=== PATIENT | female | born 1945 | race Caucasian/White ===

== ENCOUNTER 2017-05-22 06:35 | Day surgery (SDC) ==
[2017-05-22] MEDS ORDERED: LIDOCAINE 1% 20 ML MDV ID ONE (07:25)
[2017-05-22 07:30] VITALS: TEMP 98.2
[2017-05-22] MEDS ORDERED: DIPRIVAN 20 ML VIAL IVP ONE (08:25)
[2017-05-22] MEDS ORDERED: VERSED ONE (08:25)
[2017-05-22 15:28] VITALS: BP 114/62
--- NOTE | 2017-05-23 10:22 | OP ---
PROCEDURE: EGD (ESOPHAGOGASTRODUODENOSCOPY. ENDOSCOPIST: Bladimir ESCOBAR M.D. INDICATION: REFLUX. INSTRUMENT: GIFH-190. MEDICATION: PER ANESTHESIA. PROCEDURE: The patient was positioned for endoscopy. The oropharynx was sprayed with Cetacaine spray and the endoscope was advanced through the bite block into the esophagus and from there advanced to the duodenum. The duodenum was normal. The pylorus was patent. The antrum was normal. A moderate sized hiatal hernia seen on retroflex exam. The Z-line was at 30 cm. Grade C esophagitis noted in the distal third of the esophagus. She tolerated the procedure without immediate complication. PLAN: 1. Continue Proton Pump Inhibitor increased to b.i.d. for a few months and then a repeat endoscopy in three months. CC: DR. DYLAN TUTTLE
--- NOTE | 2017-05-23 10:25 | OP ---
PROCEDURE: COLONOSCOPY TO THE CECUM WITH SNARE POLYPECTOMY. ENDOSCOPIST: Bladimir ESCOBAR M.D. INDICATION: ANEMIA. INSTRUMENT: PCFH-190. MEDICATION: PER ANESTHESIA. PROCEDURE: The patient was positioned for colonoscopy. The digital rectal exam was negative. The colonoscope was inserted through the anus and advanced to the cecum. The cecum was identified using the ileocecal valve and the appendiceal orifice as landmarks. The scope was slowly withdrawn through an adequately prepped colon. [place] Bowel Prep Score = 9. In the cecal pit, an 8 mm sessile polyp removed using snare cautery. 1 cm polyp in the ascending colon removed using snare cautery. A second small polyp removed in the ascending colon submitted in the same container. Diverticulosis in the left colon. Retroflex exam was otherwise normal. She tolerated the procedure without immediate complication. Withdrawal time was 11 min and 32 seconds. PLAN: 1. Repeat colonoscopy in 3 years. CC: DR. DYLAN TUTTLE
== END 2017-05-22 09:30 | disposition home or self-care (01) ==
LOC: SURG 06:35
PROVIDERS: ATTEND Internal Medicine Gastroenterology
DX: D64.9 Anemia, unspecified (principal); K21.0 Gastro-esophageal reflux disease with esophagitis; D12.0 Benign neoplasm of cecum; K63.5 Polyp of colon; K44.9 Diaphragmatic hernia without obstruction or gangrene; K57.30 Diverticulosis of large intestine without perforation or abscess without bleeding

== ENCOUNTER 2017-10-03 10:29 | Outpatient (CLI) | END 2017-10-03 10:30 | disposition home or self-care (01) | LOC: LAB 10:29 | PROVIDERS: ATTEND Internal Medicine Nephrology | DX: N18.3 Chronic kidney disease, stage 3 (moderate) (principal) | CPT/HCPCS: 36415; 80048; 82043; 82728; 83540; 83550; 85027 ==

== ENCOUNTER 2017-10-25 11:20 | Outpatient (CLI) | payer OTHER | END 2017-10-25 11:21 | disposition home or self-care (01) | LOC: RAD 11:20 | PROVIDERS: ATTEND Family Medicine | DX: Z12.31 Encounter for screening mammogram for malignant neoplasm of breast (principal) | CPT/HCPCS: 77067 ==

== ENCOUNTER 2018-04-06 15:16 | Outpatient (CLI) | payer OTHER | END 2018-04-06 15:17 | disposition home or self-care (01) | LOC: LAB 15:16 | PROVIDERS: ATTEND Internal Medicine Nephrology | DX: N18.3 Chronic kidney disease, stage 3 (moderate) (principal) | CPT/HCPCS: 36415; 80048; 82043; 85027 ==

== ENCOUNTER 2018-07-04 13:56 | Outpatient (CLI) ==
--- NOTE | 2018-07-04 14:59 | DI ---
EXAM: Three views of the left knee. History: Left posterior knee pain. Findings: No acute fracture or dislocation. Chondrocalcinosis is seen. Moderate narrowing of the m edial compartment. Mild narrowing of the patellofemoral compartment and lateral compartment. There is osteophyte formation. Subchondral cyst within the proximal tibia. Impression: 1. No acute osseous abnormality. 2. Chondrocalcinosis. 3. 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
== END 2018-07-04 13:57 | disposition home or self-care (01) ==
LOC: RAD 13:56
PROVIDERS: ATTEND Family Medicine
DX: M25.562 Pain in left knee (principal)

== ENCOUNTER 2018-07-05 07:24 | Outpatient (CLI) | payer OTHER ==
--- NOTE | 2018-07-05 08:12 | US ---
EXAM: Left lower extremity venous Doppler History: Left lower extremity swelling. Technique: Multiple sonographic images through the left lower extremity were obtained. Color duplex Doppler was used to interrogate vascular flow. Findings: The left common femoral, greater saphenous, profunda, superficial femoral, popliteal, chloe carolyne, posterior tibial and anterior tibial veins demonstrate spontaneous flow with normal compression and normal augmentation. 3.2 cm x 1.0 cm x 1.9 cm left Menchaca's cyst. Impression: 1. No sonographic evidence for deep venous thrombosis. 2. Left Menchaca's cyst
== END 2018-07-05 07:25 | disposition home or self-care (01) ==
LOC: RAD 07:24
PROVIDERS: ATTEND Family Medicine
DX: M25.562 Pain in left knee (principal); M79.89 Other specified soft tissue disorders

== ENCOUNTER 2018-10-30 11:08 | Outpatient (CLI) | payer OTHER ==
--- NOTE | 2018-10-31 11:06 | MAMMO ---
EXAM: Bilateral digital screening mammogram (2-D and 3-D) History: Screening Comparison: Bilateral mammogram 10/25/2017 Findings: MLO and CC views of bilateral breasts demonstrate scattered fibroglandular breast parenchy ma. CAD was reviewed by the radiologist. Tomosynthesis was performed. There are no dominant masses , no suspicious microcalcifications and no architectural distortions. Stable benign bilateral vascul ar calcifications. Impression: Benign stable mammogram. Recommend followup routine screening mammography in 1 year. BI-RADS 2, benign
== END 2018-10-30 11:09 | disposition home or self-care (01) ==
LOC: RAD 11:08
PROVIDERS: ATTEND Family Medicine
DX: Z12.31 Encounter for screening mammogram for malignant neoplasm of breast (principal); M48.02 Spinal stenosis, cervical region; M54.2 Cervicalgia; R20.0 Anesthesia of skin; R20.2 Paresthesia of skin

== ENCOUNTER 2018-11-01 10:00 | Outpatient (RCR) ==
--- NOTE | 2018-10-16 15:50 | RS.OPPTEV2 ---
Date of Note: 10/16/18 Visit #: 1 Number of visits approved by Insurance: n/a Date of Evaluation: 10/16/18 Payer Source: MEDICARE Surgery Performed?: No Treatment Diagnosis: Cervical pain, spinal stenosis in cervical region, radiculopathy BUE History of Condition/Mechanism of Injury:: Pain began approx 5-6 months ago and n/t has progressively gotten worse. pt with no definite injury. Prior Level of Function.....Patient was independent with: ADL's, Self Care, Caregiving, Ambulation/Mobility, Community Integration/Access Level of Function: pt is retired, pt with an active lifestyle. Functional Limitations: Reaching, Pushing, Pulling, Lifting, Carrying Current Subjective/complaints:: pt states that her pain in cervical spine is not a severe as it was, however the n/t and pain in BUE has worsened. Treatment Side (optional): Bilateral *Precautions: n/a Medical History Medical History: Hypertension, CVA/TIA (approx 8 yrs ago), Diabetes Surgical History: Knee Replacement (Right), Hysterectomy Smoking Status: Never smoker Diagnostic Testing/Imaging:: MRI 09/13/18: multilevel grade 1 anterolisthesis with multilevel degenerative changes. Spinal canal stenosis mod at C3-4. C 6- 7 with disc osteophyte complex and superimposed rightparacentral/subarticular disc protrusion. Nerve conduction test: UE may suggest some distal median and ulnar sensory entrapment R median > left and median motor entrapment at the wrist on the right. Hx Home Medications: aspirin, atorvastatin, cinnamon, cranberry-cholecalciferol , felodipine, ferosul, fish oil, losartan/hctz, metformin ER, niacin, pantoprazole, vit D Patient's Goals: decrease pain in cervical spine, and decrease n/t B UE's Pain Assessment - Pain Description Pain Location: cervical spine Pain Description: Radiating, Aching Current Pain Intensity: 4 Worst Pain Intensity: 7 Other Comments regarding Pain:: pt with some pain in upper arms even at rest Functional Outcome Measure Neck Disability Index: 7 - G Codes & Severity Modifier G Codes & Modifier: n/a Source of G Code score: n/a Observation - Observation Inspection: pt with pain with shld ROM. pt with + speeds test on RUE, + empty can on left. Posture: Forward Head, Rounded Shoulders, Increased Thoracic Kyphosis, Decreased Cervical Lordosis Handedness: Right Gait - Gait Pattern General Gait Pattern Observation: No Deviations/Normal General Range of Motion: BLE WFL's. BUE WFL's Muscle Strength: BLE 5/5. BUE shld flex 4-/5, elbow flex/ext 4+/5, decreased senior accounting analyst. Ground Host/Hostess strength : R UE 36#, LUE 35# - ROM Cervical Spine Range of Motion Limitations: Soft Tissue Tightness, Muscle Weakness, Pain Comments: pain with cervical L rotation, and L lat side bending. - Strength Cervical Extension: 4 Good Cervical Flexion: 4- Good- Cervical Lateral Flexion: 4- Good- Cervical Rotation: 4- Good- Comments: pt with pain with brachial plexus stretch. - Special Tests Foraminal Distraction: Negative Foraminal Compression: Negative Left, Negative Right Palpation Palpation Findings: Tenderness Comments:: pt with tenderness noted in cervical paraspinals, tenderness to palpation R biceps tendon. Tenderness to palpation on L AC joint Sensation - Sensation Right Upper Extremity: Impaired Left Upper Extremity: Impaired Right Lower Extremity: Intact/Normal Left Lower Extremity: Intact/Normal Comments: pt with n/t BUE elbows/to hands, pt with burning to B fingertips Balance - Sitting Balance Static Sitting Balance: Normal Dynamic Sitting Balance: Normal - Standing Balance Static Standing Balance: Normal Dynamic Standing Balance: Normal Interventions - Exercise/Activities/Manual Therapy Exercises/Activities: pt performed cervical retraction, corner stretch, wrist flexor stretch, scapular retraction Manual Therapy: n/a HOME EXERCISE PROGRAM: pt given written HEP including: cervical retraction, scapular retraction, corner stretch, wrist flexor stretch. - Charges Timed Code Treatment Minutes: 51 Total Treatment Time: 58 Procedures billed for this date of service:: eval low, ex EVALUATION COMPLEXITY LEVEL EVALUATION COMPLEXITY LEVEL: HISTORY: Low, EXAM OF BODY SYSTEMS: Low, CLINICAL PRESENTATION: Low, CLINICAL DECISION MAKING: Low Assessment Assessment: pt presents with cervical pain, with radicular n/t BUE. pt with muscle tightness in cervical paraspinal muscles. pt also with decreased strength BUE. pt also with symptoms consistent with compression to median nerve. Feel pt would benefit from skilled PT for therex for stretching, strengthening as well as possibly traction and modalities to decrease pain . Patient Education: Home Exercise Program, Education of Plan of Care Rehab Potential: Good Short Term Goals Goal #1: pt independent with intial HEP Goal to be met by: 11/02/18 Goal #2: pt with decreased cervical pain < 4/10 Goal to be met by: 11/02/18 Goal #3: pt demonstrate improved postural awareness Goal to be met by: 11/02/18 Goal #4: Improve BUE strength 4 to 4+/5 Goal to be met by: 11/02/18 Hanger Goals Goal #1: pt report n/t B UE no longer constant. Goal to be met by: 11/23/18 Goal #2: pt able to perform normal daily activities w less pain Goal to be met by: 11/23/18 Goal #3: pt report pain in cervical spine is no longer constant. Goal to be met by: 11/23/18 Plan - Treatment to be Provided Procedures: Therapeutic Exercises, Therapeutic Activity, Manual Therapy, Patient Education Modalities: Electrical Stimulation, Ultrasound/Phonophoresis, Class IV Laser, Cryotherapy, Hot Packs, Mechanical Traction - Treatment Plan Frequency: 2-3x a week Duration: 6 weeks Dates of Hanger Goals: 11/23/18 Expiration date of current Insurance Approval:: n/a - Treatment Code (1) Cervical pain Code(s): M54.2 - CERVICALGIA (2) Radiculopathy affecting upper extremity Code(s): M54.10 - RADICULOPATHY, SITE UNSPECIFIED (3) Muscle weakness Code(s): M62.81 - MUSCLE WEAKNESS (GENERALIZED) (4) Spinal stenosis in cervical region Code(s): M48.02 - SPINAL STENOSIS, CERVICAL REGION
--- NOTE | 2018-10-18 15:49 | RS.OPPTDN ---
Subjective Date of Note: 10/18/18 Visit #: 2 Number of visits approved by Insurance: Reassess at 10 Date of Evaluation: 10/16/18 Payer Source: MEDICARE Treatment Diagnosis: Cervical pain, spinal stenosis in cervical region, radiculopathy BUE Current Subjective/complaints:: Patient says she has had to be dealing with insurance changes on her prescriptions and is upset about being nearly out of her medications. She says she is trying to work on "straightening up" and eager to begin therapy to reduce her pain in her neck. Reports tingling/ numbness runs from both shoulders to hands all fingers sitting at rest or with activity. *Precautions: n/a - Treatment Modality: Ultrasound Parameters/Method Applied: continuous @ 1.5 w/cm2 x 12 mins bilateral UT Patient Position: Sitting - Heat/Cryotherapy Treatment: Hot Pack (15 mins cervical in sitting) - Traction Treatment Method: Mechanical, Intermittent, Cervical Patient Position: Supine Amount of Force Applied: 13 Hold Time: 25 Rest Time: 5 Duration of treatment: 12 Interventions - Exercise/Activities/Manual Therapy Exercises/Activities: Received education regarding posture and techniques as well as on treatment performed today and their benefits. She was encouraged to continue with home stretches and working on postural techniques. Total minutes of Exercise: 6 Manual Therapy: n/a HOME EXERCISE PROGRAM: pt given written HEP including: cervical retraction, scapular retraction, corner stretch, wrist flexor stretch. - Charges Timed Code Treatment Minutes: 18 Total Treatment Time: 41 Procedures billed for this date of service:: hp, mechanical traction, u/s Assessment: Patient presents with moderate bilateral UT pain with constant n/t to bilateral UE to all fingers. She has mild mm guarding to the same area with FHP. She is now aware of poor posture and is trying to improve it with home stretches. She dereck all treatment today well and with verbally admitting relief. Traction began low in poundage and was also dereck without c/o. She expresses looking forward to progressing with traction to alleviate radiating symptoms. Patient Education: Education of diagnosis, Body/Joint mechanics, Home Exercise Program, Education of Plan of Care Patient demonstrates compliance with HEP?: Yes Short Term Goals Goal #1: pt independent with intial HEP Goal to be met by: 11/02/18 Progress towards Goal:: Progressing Goal #2: pt with decreased cervical pain < 4/10 Goal to be met by: 11/02/18 Goal #3: pt demonstrate improved postural awareness Goal to be met by: 11/02/18 Goal #4: Improve BUE strength 4 to 4+/5 Goal to be met by: 11/02/18 Snf Goals Goal #1: pt report n/t B UE no longer constant. Goal to be met by: 11/23/18 Goal #2: pt able to perform normal daily activities w less pain Goal to be met by: 11/23/18 Goal #3: pt report pain in cervical spine is no longer constant. Goal to be met by: 11/23/18 Plan Dates of Music Library Assistant Goals: 11/23/18 Expiration date of current Insurance Approval:: 11/23/18 PLAN: continue for modalities, traction, and postural strengthening.
--- NOTE | 2018-10-22 11:28 | RS.OPPTDN ---
Subjective Date of Note: 10/22/18 Visit #: 3 Number of visits approved by Insurance: Reassess at 10th Date of Evaluation: 10/16/18 Payer Source: MEDICARE Treatment Diagnosis: Cervical pain, spinal stenosis in cervical region, radiculopathy BUE Current Subjective/complaints:: Patient says treatment at last visit seemed to help. She feels traction relieved her pain and wants to continue. *Precautions: n/a - Treatment Modality: Ultrasound Parameters/Method Applied: continuous@ 1.5 w/cm2 x 12 mins to bilateral UT Patient Position: Sitting - Heat/Cryotherapy Treatment: Hot Pack (cervical x 20 mins in sitting with arm supported on pillow) - Traction Treatment Method: Mechanical, Intermittent, Cervical Patient Position: Supine Amount of Force Applied: 14-15 Hold Time: 20 Rest Time: 5 Duration of treatment: 16 Interventions - Exercise/Activities/Manual Therapy Exercises/Activities: Received education regarding posture and techniques as well as on treatment performed today and their benefits. She was encouraged to continue with home stretches and working on postural techniques. Manual Therapy: n/a HOME EXERCISE PROGRAM: pt given written HEP including: cervical retraction, scapular retraction, corner stretch, wrist flexor stretch. - Charges Timed Code Treatment Minutes: 15 Total Treatment Time: 50 Procedures billed for this date of service:: hp, u/s, mechanical traction Assessment: Patient experienced reduced neck pain following her previous session and beginning traction. She also felt mild relief today and eager to progress traction further. She is consistent with HEP. Patient Education: Education of diagnosis, Home Exercise Program Patient demonstrates compliance with HEP?: Yes Short Term Goals Goal #1: pt independent with intial HEP Goal to be met by: 11/02/18 Progress towards Goal:: Progressing Goal #2: pt with decreased cervical pain < 4/10 Goal to be met by: 11/02/18 Goal #3: pt demonstrate improved postural awareness Goal to be met by: 11/02/18 Goal #4: Improve BUE strength 4 to 4+/5 Goal to be met by: 11/02/18 Senior Ruby Developer Goals Goal #1: pt report n/t B UE no longer constant. Goal to be met by: 11/23/18 Goal #2: pt able to perform normal daily activities w less pain Goal to be met by: 11/23/18 Goal #3: pt report pain in cervical spine is no longer constant. Goal to be met by: 11/23/18 Plan Dates of Senior Ruby Developer Goals: 11/23/18 Expiration date of current Insurance Approval:: 11/23/18 PLAN: Patient to continue BIW for modalities, progress traction and postural strengthening.
--- NOTE | 2018-10-24 11:40 | RS.OPPTDN ---
Subjective Date of Note: 10/24/18 Visit #: 4 Number of visits approved by Insurance: Reassess at 10th Date of Evaluation: 10/16/18 Payer Source: MEDICARE Treatment Diagnosis: Cervical pain, spinal stenosis in cervical region, radiculopathy BUE Current Subjective/complaints:: Patient says she still is having n/t to bilateral UEs, but neck pain is lessening and thinks PT is helping decrease the frequency of radiating symptoms. She says she tries to work on HEP so that her posture may improve. *Precautions: n/a - Treatment Modality: Ultrasound Parameters/Method Applied: continuous @ 1.5 w/cm2 x 12 mins bilateral UT Patient Position: Sitting - Heat/Cryotherapy Treatment: Hot Pack (cervical x 15 mins prior to u/s in sitting with arm support ) - Traction Treatment Method: Mechanical, Intermittent, Cervical Patient Position: Supine Amount of Force Applied: 16-17 Hold Time: 25 Rest Time: 5 Duration of treatment: 20 Traction Treatment Comment: 2 steps up Interventions - Exercise/Activities/Manual Therapy Exercises/Activities: Patient received passive cspine stretches including rotation and SB bilaterally, AA shoulder shrugs and scap adduction. Cervical retraction x 5. She performs postural techniques against the wall, 1# wand for bilateral shoulder flexion to ~100 degrees flexion, then red tband bilateral shoulder ER x 10. Patient given red tband for home. Total minutes of Exercise: 12 Manual Therapy: n/a HOME EXERCISE PROGRAM: pt given written HEP including: cervical retraction, scapular retraction, corner stretch, wrist flexor stretch. - Charges Timed Code Treatment Minutes: 24 Total Treatment Time: 59 Procedures billed for this date of service:: hp, mechanical traction, ex, u/s Assessment: Patient dereck progression of traction and demo better posture with cueing and isometrics. She is more aware of correction and is consistent with HEP. She has had slight reduction in neck pain, but maintains radiating symptoms. This should improve with further modalties, therex, and traction. Patient Education: Education of diagnosis, Body/Joint mechanics, Home Exercise Program, Education of Plan of Care Patient demonstrates compliance with HEP?: Yes Short Term Goals Goal #1: pt independent with intial HEP Goal to be met by: 11/02/18 Progress towards Goal:: Progressing Goal #2: pt with decreased cervical pain < 4/10 Goal to be met by: 11/02/18 Progress towards Goal:: Progressing Goal #3: pt demonstrate improved postural awareness Goal to be met by: 11/02/18 Progress towards Goal:: Progressing Goal #4: Improve BUE strength 4 to 4+/5 Goal to be met by: 11/02/18 Detention Goals Goal #1: pt report n/t B UE no longer constant. Goal to be met by: 11/23/18 Goal #2: pt able to perform normal daily activities w less pain Goal to be met by: 11/23/18 Goal #3: pt report pain in cervical spine is no longer constant. Goal to be met by: 11/23/18 Plan Dates of Detention Goals: 11/23/18 Expiration date of current Insurance Approval:: 11/23/18 PLAN: Patient to continue BIW for modalities, progression of traction, and therex to improve scap strengthening and posture.
--- NOTE | 2018-10-25 11:40 | RS.OPPTDN ---
Subjective Date of Note: 10/25/18 Visit #: 5 Number of visits approved by Insurance: Reassess at 10th Date of Evaluation: 10/16/18 Payer Source: MEDICARE Treatment Diagnosis: Cervical pain, spinal stenosis in cervical region, radiculopathy BUE Current Subjective/complaints:: Patient says her arms actually feel better after added exercises yesterday. She says she feels better about her posture as well. C/o Menchaca's cyst she has had for ~4months and whether she should use heat or ice to gain relief. States she will be preparing items for family reunion this weekend including peeling 10# potatoes. *Precautions: n/a - Treatment Modality: Ultrasound Parameters/Method Applied: continuous @ 1.5 w/cm2 x 12 mins bilateral UT Patient Position: Sitting - Heat/Cryotherapy Treatment: Hot Pack (cervical x 15 mins in sitting with Bilateral UE support) - Traction Treatment Method: Mechanical, Intermittent, Cervical Patient Position: Supine Amount of Force Applied: 19-20 Hold Time: 25 Rest Time: 5 Duration of treatment: 20 Interventions - Exercise/Activities/Manual Therapy Exercises/Activities: Patient received passive cspine stretches including rotation and SB bilaterally, AA shoulder shrugs and scap adduction. Cervical retraction isometrics 2 x 5. She performs postural techniques against the wall , 1# wand for bilateral shoulder flexion to ~100 degrees flexion x 5. Total minutes of Exercise: 11 Manual Therapy: n/a HOME EXERCISE PROGRAM: pt given written HEP including: cervical retraction, scapular retraction, corner stretch, wrist flexor stretch. - Charges Timed Code Treatment Minutes: 23 Total Treatment Time: 58 Procedures billed for this date of service:: hp, mechanical traction, u/s, ex Assessment: Patient experiencing improved intensity of pain to her neck as well as UE exercises providing relief. She is actively working on postural techniques during ADLs/house hold chores and did discuss sitting during potato peeling and taking breaks to correct posture and perform flexibility exercises. Also, if possible encouraged her to bring items more to eye level to decrease cervical flexion. She remains positive and attentive to PT and is eager to progress with exercises. Muscle guarding appears to be reduced, but tone is more observable to the L than R UT which is consistent with her verbal admission today. Patient Education: Education of diagnosis, Body/Joint mechanics, Home Exercise Program Patient demonstrates compliance with HEP?: Yes Short Term Goals Goal #1: pt independent with intial HEP Goal to be met by: 11/02/18 Progress towards Goal:: Progressing Goal #2: pt with decreased cervical pain < 4/10 Goal to be met by: 11/02/18 Progress towards Goal:: Progressing Goal #3: pt demonstrate improved postural awareness Goal to be met by: 11/02/18 Progress towards Goal:: Progressing Goal #4: Improve BUE strength 4 to 4+/5 Goal to be met by: 11/02/18 Progress towards Goal:: Progressing Air Defence Officer Goals Goal #1: pt report n/t B UE no longer constant. Goal to be met by: 11/23/18 Goal #2: pt able to perform normal daily activities w less pain Goal to be met by: 11/23/18 Goal #3: pt report pain in cervical spine is no longer constant. Goal to be met by: 11/23/18 Plan Dates of Air Defence Officer Goals: 11/23/18 Expiration date of current Insurance Approval:: 11/23/18 PLAN: Patient to continue with progression of traction to reduce radiating symptoms and therex to improve posture and scapular strength.
--- NOTE | 2018-10-30 15:24 | RS.OPPTDN ---
Subjective Date of Note: 10/30/18 Visit #: 6 Number of visits approved by Insurance: Reassess at 10 Date of Evaluation: 10/16/18 Payer Source: MEDICARE Treatment Diagnosis: Cervical pain, spinal stenosis in cervical region, radiculopathy BUE Current Subjective/complaints:: Patient says she had increased pain and fatigue to her neck over the weekend with preparing meals for a reunion. She says she had to peel and prepare potatos that took much of her time. However, she did take breaks and use a stool to sit and bring items closer to eye level as she was able (as we reviewed last week). She says she saw Dr. Abad also indicating she will have surgery, but not sure when yet until it is finalized with her insurance. *Precautions: n/a - Treatment Modality: Ultrasound Parameters/Method Applied: continuous @ 1.5 w/cm2 x 10 mins bilateral UT Patient Position: Sitting - Heat/Cryotherapy Treatment: Hot Pack (cervical x 20 mins in supine) - Traction Treatment Method: Mechanical, Intermittent, Cervical Patient Position: Supine Amount of Force Applied: 20 Hold Time: 25 Rest Time: 5 Duration of treatment: 20 Interventions - Exercise/Activities/Manual Therapy Exercises/Activities: Reviewed postural exercises and discussed upcoming surgical procedure. Educated her on procedure per pt and what to expect. Manual Therapy: n/a HOME EXERCISE PROGRAM: pt given written HEP including: cervical retraction, scapular retraction, corner stretch, wrist flexor stretch. - Charges Timed Code Treatment Minutes: 15 Total Treatment Time: 50 Procedures billed for this date of service:: hp, u/s, mechanical traction Assessment: Patient experiencing reduced intensity of cspine pain and decreased frequency of radiating symptoms. Patient has been informed she is getting set up for possible ACF once insurance is approved. Patient eager to proceed and strengthen/reduce pain as much as she can. She is dereck progression of traction well and should continue to do so. Patient Education: Education of diagnosis, Body/Joint mechanics, Home Exercise Program, Education of Plan of Care Patient demonstrates compliance with HEP?: Yes Short Term Goals Goal #1: pt independent with intial HEP Goal to be met by: 11/02/18 Progress towards Goal:: Progressing Goal #2: pt with decreased cervical pain < 4/10 Goal to be met by: 11/02/18 Progress towards Goal:: Met Goal #3: pt demonstrate improved postural awareness Goal to be met by: 11/02/18 Progress towards Goal:: Progressing Goal #4: Improve BUE strength 4 to 4+/5 Goal to be met by: 11/02/18 Progress towards Goal:: Progressing Usp Goals Goal #1: pt report n/t B UE no longer constant. Goal to be met by: 11/23/18 Goal #2: pt able to perform normal daily activities w less pain Goal to be met by: 11/23/18 Goal #3: pt report pain in cervical spine is no longer constant. Goal to be met by: 11/23/18 Progress towards goal: Progressing Plan Dates of Usp Goals: 11/23/18 Expiration date of current Insurance Approval:: 11/23/18 PLAN: Patient to continue BIW for reduction of neck pain and strengthen UEs.
--- NOTE | 2018-11-01 11:44 | RS.OPPTDN ---
Subjective Date of Note: 11/01/18 Visit #: 7 Number of visits approved by Insurance: 10 Date of Evaluation: 10/16/18 Payer Source: MEDICARE Treatment Diagnosis: Cervical pain, spinal stenosis in cervical region, radiculopathy BUE Current Subjective/complaints:: Patient says her surgery date will be 11/15/18 and will need to schedule next weeks treatment around her pre-op work. Reports she is trying to decorate her home for Fall and has trouble due to weakened and painful UEs. She says treatment is helping, but she is hoping procedure will help even more to gain this ability as it is her hobby. *Precautions: n/a - Treatment Modality: Ultrasound Parameters/Method Applied: continuous @ 1.5 w/cm2 x 12 mins to bilateral UT prior to traction Patient Position: Sitting - Heat/Cryotherapy Treatment: Hot Pack (cervical x 20 mins supine) - Traction Treatment Method: Mechanical, Intermittent, Cervical Patient Position: Supine Amount of Force Applied: 21 Hold Time: 30 Rest Time: 5 Duration of treatment: 20 Traction Treatment Comment: 2 steps Interventions - Exercise/Activities/Manual Therapy Exercises/Activities: Reviewed shoulder shrugs, scap retraction and bilateral shoulder ER for home. Manual Therapy: n/a HOME EXERCISE PROGRAM: pt given written HEP including: cervical retraction, scapular retraction, corner stretch, wrist flexor stretch. - Charges Timed Code Treatment Minutes: 16 Total Treatment Time: 56 Procedures billed for this date of service:: hp, mechanical traction, u/s Assessment: Patient continues to progress with mechanical traction and decreased intensity of pain. Although she remains with radicular symptoms, they appear to be slightly less intense as well. She is having difficulty currently with repetitive and prolonged raising of both arms above her head. She is quite eager for her procedure in order to gain some of her hobbies back through pain reduction. Patient Education: Home Exercise Program Patient demonstrates compliance with HEP?: Yes Short Term Goals Goal #1: pt independent with intial HEP Goal to be met by: 11/02/18 Progress towards Goal:: Met Goal #2: pt with decreased cervical pain < 4/10 Goal to be met by: 11/02/18 Progress towards Goal:: Met Goal #3: pt demonstrate improved postural awareness Goal to be met by: 11/02/18 Progress towards Goal:: Met Goal #4: Improve BUE strength 4 to 4+/5 Goal to be met by: 11/02/18 Progress towards Goal:: Progressing Senior Instructor Goals Goal #1: pt report n/t B UE no longer constant. Goal to be met by: 11/23/18 Goal #2: pt able to perform normal daily activities w less pain Goal to be met by: 11/23/18 Progress towards goal: Progressing Goal #3: pt report pain in cervical spine is no longer constant. Goal to be met by: 11/23/18 Progress towards goal: Progressing Plan Dates of Shelter Goals: 11/23/18 Expiration date of current Insurance Approval:: 11/23/18 PLAN: Patient has surgery set for 11/15/18. We will see her x 3 more sessions to concentrate on strengthening UEs.
== END 2018-11-03 23:59 ==
PROVIDERS: ATTEND Nurse Practitioner Family
DX: M48.02 Spinal stenosis, cervical region (principal); M54.2 Cervicalgia; R20.0 Anesthesia of skin; R20.2 Paresthesia of skin

== ENCOUNTER 2018-11-12 06:30 | Outpatient (CLI) ==
--- NOTE | 2018-11-12 08:22 | STECHOSEST ---
Date of Test: 11/12/18 Ordering Physician: DR. MARK RICHARDSON Occupation: RETIRED Reason for Exam: ABNORMAL EKG, LBBB, HTN, SURGICAL CLEARANCE Height: 61" Weight: 135 LBS Current Medications: ASA, LIPITOR, ERGOCALCIFEROL, PLENDIL, FEROSUL, HYZAAR, GLUCOPHAGE-XR, NIACIN, PROTONIX Resting EKG: SINUS RHYTHM/LBBB/PVC Target Heart Rate: 125/148 S-T SEGMENT STAGE MPH/GRADE HEART RATE BPM BLOOD PRESSURE mmhg RHYTHM +/- ELEVATION DEPRESSION SYMPTOMS At Rest 77 BPM 170/80 MMHG SR X NONE 1 1.7/10% 2 2.5/12% 3 3.4/14% 4 4.2/16% 5 5.0/18% Immediately after 130 BPM 190/84 MMHG SR X FATIGUE Minutes Post Exercise 3:00 95 BPM 172/80 MMHG SR X NONE Minutes Post Exercise 5:00 87 BPM 160/80 MMHG SR X NONE Total Time: 2:11 Maximum Heart Rate Reached: 130 BPM Reason for Termination: FATIGUE 96% Oxygen saturation on room air with exercises Mets 4.6 INTERPRETATION 1. INCONCLUSIVE PATIENT HAS ABNORMAL EKG WITH LEFT BUNDLE BRANCH BLOCK 2. NO CHEST PAIN OR DISCOMFORT 3. FEW PVC'S AT REST --LESS WITH EXERCISE 4. BLOOD PRESSURE RESPONSE: SYSTOLIC HYPERTENSION WITH EXERCISE NORMAL LEFT VENTRICULAR CONTRACTILITY--RESTING AND POST EXERCISE RECOMMEND: STRESS SESTAMIBI MTDD
--- NOTE | 2018-11-12 08:24 | ECHOSTRESS ---
Date of Exam: 11/12/18 Ordering Physician: DR. MARK RICHARDSON Reason for Echo: ABNORMAL EKG, STRESS TEST--INCONCLUSIVE FOR ISCHEMIA M-Mode Normal Adult Results LV Dimensions Normal Adult Results AoV Opening excursions >1.6 LVEDD-base- 3.5-5.8 Ao root dimensions 2.0-3.7 LVESD-base- 3.1-4.6 L. Atrium dimensions 1.9-3.8 Post. Wall thickness 0.8-1.1 IV septum (thickness) 0.7-1.2 Post. Wall excursion 0.72-1.3 Septal motion Systolic motion R. Ventricular cavity 1.5-2.0 LVEF 60% Paradoxical septal wall motion 2-D: NORMAL LEFT VENTRICULAR CONTRACTILITY--RESTING AND POST EXERCISE (MILD SEPTAL WALL ABNORMALITY--FROM LEFT BUNDLE BRANCH BLOCK M-MODE: MV: AV: TV: PV: CHAMBER SIZE: WALL MOTION: NORMAL LEFT VENTRICULAR CONTRACTILITY--RESTING AND POST EXERCISE ( MILD SEPTAL WALL ABNORMALITY--FROM LEFT BUNDLE BRANCH BLOCK PERICARDIUM: INTERPRETATION: 1. NORMAL LEFT VENTRICULAR CONTRACTILITY--RESTING AND POST EXERCISE (MILD SEPTAL WALL ABNORMALITY--FROM LEFT BUNDLE BRANCH BLOCK MTDD
== END 2018-11-12 06:31 | disposition home or self-care (01) ==
LOC: CAR 06:30
PROVIDERS: ATTEND Family Medicine
DX: R94.31 Abnormal electrocardiogram [ECG] [EKG] (principal)

== ENCOUNTER 2023-08-16 11:27 | Observation (INO) ==
[2023-08-16 12:11] LABS: BASOPHILS % (AUTO) 0.4 % (0.0-3.0); EOSINOPHILS % (AUTO) 0.3 % (0.0-7.0); HEMATOCRIT 35.2 % (37.0-47.0); HEMOGLOBIN 11.7 g/dl (12.0-16.0); IMMATURE GRANULOCYTE % (AUTO) 0.3 % (0.0-5.0); LYMPHOCYTES # (AUTO) 1.4 K/uL (0.60-3.4); LYMPHOCYTES % (AUTO) 19.1 (10.0-50.0); MEAN CORPUSCULAR HEMOGLOBIN 32.6 pg (27.0-31.0); MEAN CORPUSCULAR HGB CONC 33.2 (31.8-35.4); MEAN CORPUSCULAR VOLUME 98.1 fl (81.0-99.0); MONOCYTES # (AUTO) 0.4 K/uL (0.4-2.0); MONOCYTES % (AUTO) 5.7 (0-10); NEUTROPHILS # (AUTO) 5.4 K/ul (2.0-6.9); NEUTROPHILS % (AUTO) 74.2 % (42.2-75.2); PLATELET COUNT 229 10^3/uL (140-440); RDW COEFFICIENT OF VARIATION 14.6 % (11.6-14.8); RED BLOOD COUNT 3.59 10^6/ul (4.20-5.40); WHITE BLOOD COUNT 7.32 K/ul (4.6-10.2)
--- NOTE | 2023-08-16 12:14 | DI ---
EXAM: CHEST ONE-VIEW HISTORY: Weakness COMPARISON: None FINDINGS: A moderate hiatus hernia is noted. The cardiomediastinal silhouette is normal. The pulmon dileep vasculature is normal. No consolidating infiltrates are detected. No pneumothoraces or pleural effusions. IMPRESSION: 1. No acute cardiopulmonary disease. 2. Moderate hiatus hernia. .
[2023-08-16 12:20] LABS: BILIRUBIN,URINE Negative (NEGATIVE); CLARITY,URINE Clear (CLEAR); COLOR,URINE Yellow (YELLOW); GLUCOSE, URINE (UA) Negative (NEGATIVE); KETONES,URINE Negative (NEGATIVE); LEUKOCYTE ESTERASE ,URINE Negative (NEGATIVE); NITRITE,URINE Negative (NEGATIVE); PH,URINE 5.5 (5-9); PROTEIN,URINE Negative (NEGATIVE); URINE, BLOOD Negative (NEGATIVE); UROBILINOGEN,URINE 0.2 (0.2)
[2023-08-16 12:23] LABS: ALANINE AMINOTRANSFERASE 51.8 U/L (0-35); ALBUMIN 4.52 g/dL (3.5-5.0); ALKALINE PHOSPHATASE 106.8 U/L (53-141); ASPARTATE AMINO TRANSFERASE 90.1 U/L (14-36); BILIRUBIN,TOTAL 0.96 mg/dL (0.2-1.3); CALCIUM 9.61 mg/dL (8.4-10.2); CARBON DIOXIDE 19.4 mmol/L (22-30.0); CHLORIDE 96.9 mmol/L (98-107); CREATININE 1.42 mg/dL (0.60-1.30); GLUCOSE 152.9 mg/dL (74-106); POTASSIUM 5.55 mmol/L (3.5-5.1); SODIUM 135.6 mmol/L (134.5-145); TOTAL PROTEIN 6.84 g/dL (6.3-8.2)
--- NOTE | 2023-08-16 12:24 | ED.PDOC ---
General ED Provider: Dr. GIOVANA MOSCOSO DO Chief Complaint: Weakness Time Seen by Provider: 08/16/23 12:23 Information Source: Patient and Family Primary Care Provider: SUZAN MANZANO MD What is Opioid Naive?: *Opioid Naive implies the patient is not already taking opioids or not chronically receiving opioids on a daily basis. *PRN dosing is not "usually" associated with tolerance. *Patients are at higher risk of over-sedation and aspiration. What is Opioid Tolerant?: *Opioid Tolerance implies less than the expected response to an opioid. *Acquired tolerance is defined by the patient taking 60mg of oral morphine daily (or equianalgesic dose of another opioid) for 1 week or more. *Often associated with chronic pain. *May take more than usual dose to achieve desired pain control. [facility] Medical History Stroke I63.9 - Cerebral infarction, unspecified (ICD-10) Hearing loss H91.90 - Unspecified hearing loss, unspecified ear (ICD-10) GERD (gastroesophageal reflux disease) K21.9 - Gastro-esophageal reflux disease without esophagitis (ICD-10) DDD (degenerative disc disease), lumbar M51.36 - Other intervertebral disc degeneration, lumbar region (ICD-10) Arthritis M19.90 - Unspecified osteoarthritis, unspecified site (ICD-10) Family History FATHER Cancer Mother Diabetes Acute kidney failure SISTER COPD (chronic obstructive pulmonary disease) Social History Smoking and tobacco status: Never smoker Alcohol intake: current Substance use type: does not use Household members: spouse Marital status: M Lives independently: Yes Number of children: 2 Pets and animals: Yes Current gender identity: female Seatbelt use: always Drives intoxicated or rides with intoxicated telephone directory distributor driver: No Water heater temperature set < 120 degrees: Yes Working smoke detector in home: Yes Fire extinguisher in home: Yes Carbon monoxide detector in home: Yes Surgical History History of hysterectomy per pt cva after hyst takes asa 325mg 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) Female Reproductive History Menstrual Hx Hysterectomy: Yes Hx Tubal Ligation: No Course Course 08/16/23 12:06 08/16/23 12:06 Orders, Labs, Meds: Lab Review 08/16/23 08/16/23 12:06 12:13 WBC 7.32 RBC 3.59 L Hgb 11.7 L Hct 35.2 L MCV 98.1 MCH 32.6 H MCHC 33.2 RDW Coeff of Tim 14.6 Plt Count 229 Immature Gran % (Auto) 0.3 Neut % (Auto) 74.2 Lymph % (Auto) 19.1 [place] % (Auto) 5.7 Eos % (Auto) 0.3 Baso % (Auto) 0.4 Neut # (Auto) 5.4 Lymph # (Auto) 1.4 [place] # (Auto) 0.4 Eos # (Auto) 0.0 Baso # (Auto) 0.0 Immature Gran # (Auto) 0.0 Sodium 135.6 Potassium 5.55 H Chloride 96.9 L Carbon Dioxide 19.4 L Anion Gap 24.85 BUN 32.0 H Creatinine 1.42 H Estimated GFR (MDRD) 36.00 BUN/Creatinine Ratio 22.53 Glucose 152.9 H Calcium 9.61 Total Bilirubin 0.96 AST 90.1 H ALT 51.8 H Alkaline Phosphatase 106.8 Troponin I 0.017 NT-Pro-B Natriuret Pep 396 H Total Protein 6.84 Albumin 4.52 Globulin 2.32 Albumin/Globulin Ratio 1.94 TSH 5.140 H Urine Color Yellow Urine Clarity Clear Urine pH 5.5 Ur Specific [place] 1.020 Urine Protein Negative Urine Glucose (UA) Negative Urine Ketones Negative Urine Blood Negative Urine Nitrite Negative Urine Bilirubin Negative Urine Urobilinogen 0.2 Ur Leukocyte Esterase Negative Orders Category Date Time Status EKG-(ED ONLY) Stat CARDIO 08/16/23 11:32 Completed NPO REMINDER: IMAGING ONCE CARE 08/16/23 12:23 Active CBC W/ AUTO DIFF Stat LAB 08/16/23 12:06 Completed CMP [COMPREHENSIVE METABOLIC PANEL] Stat LAB 08/16/23 12:06 Completed NT-PROBNP(ED) Stat LAB 08/16/23 12:06 Completed THYROID STIMULATING HORMONE Stat LAB 08/16/23 12:06 Completed TROPONIN I Stat LAB 08/16/23 12:06 Completed URINALYSIS C & S IF INDICATED Stat LAB 08/16/23 12:13 Completed Calcium Gluc in NaCl, Iso-Osm [Calcium Gluconate 1,000 Meds 08/16/23 12:54 Discontinued mg/100 ml Ns] 1,000 mg in 100 ml IV ONCE Dextrose 50 % in Water [Dextrose 50%-Water Abboject] Meds 08/16/23 12:56 Discontinued 50 ml IVP ONCE ONE Insulin Regular, Human [Humulin R (3Ml)] Meds 08/16/23 12:56 Discontinued 5 unit IVP ONCE ONE Sodium Chloride 0.9% [Sodium Chloride] 1,000 ml Meds 08/16/23 13:01 Active IV BOLUS CHEST, 1V AP ONLY Stat RADS 08/16/23 11:[address] ABDOMEN/PELVIS W CONTRAST Stat RADS 08/16/23 12:23 Completed Medications Generic Name Dose Route Start Last Admin Trade Name Freq PRN Reason Stop Dose Admin Sodium Chloride 1,000 mls @ 1,000 mls/hr 08/16/23 13:01 Sodium Chloride IV 08/16/23 14:00 BOLUS ONE Discontinued Medications Generic Name Dose Route Start Last Admin Trade Name Freq PRN Reason Stop Dose Admin Dextrose 50 ml 08/16/23 12:56 Dextrose 50 % In Water 50 Ml Disp.Syrin IVP 08/16/23 12:57 ONCE ONE CALCIUM GLUC IN NACL, ISO-OSM 1,000 mg in 100 mls @ 400 mls/hr 08/16/23 12:54 Calcium Gluconate 1,000 Mg/100 Ml Ns IV 08/16/23 13:08 ONCE ONE Insulin Human Regular 5 unit 08/16/23 12:56 Insulin Regular, Human 100 Unit/Ml (3ml) IVP 08/16/23 12:57 ONCE ONE Vital Signs: Temp Pulse Resp BP Pulse Ox 08/16/23 11:36 98.1 F 90 16 142/74 H 99 Discharge Plan Discharge Patient Disposition: PLACED OBSERVATION Discharge Problem: KIMBERLEY (acute kidney injury), Acute hyperkalemia Prescriptions: No Action cholecalciferol (vitamin D3) 1,250 mcg (50,000 unit) capsule See Rx Instructions .ROUTE .COMPLEX Qty: 12 0RF Dose Instruction: TAKE 1 CAPSULE BY MOUTH ONCE WEEKLY Rx Instructions: TAKE 1 CAPSULE BY MOUTH ONCE WEEKLY aspirin 325 MG tablet 325 mg PO DAILY Rx Instructions: DO NOT TAKE DAY OF PROCEDURE. Fish Oil 1 EACH capsule 2 ea PO DAILY cinnamon bark [Cinnamon] 500 mg Capsule 500 mg PO DAILY cranberry extract 250 mg Tablet 250 mg PO DAILY lidocaine 5 % adhesive patch,medicated 1 patch topical DAILY Qty: 30 0RF Rx Instructions: leave on most painful area for up to 12 hrs folic acid 1 mg tablet 1 mg PO DAILY Patient Comments: TAKE 1 TABLET BY MOUTH DAILY metformin 500 mg tablet 500 mg PO BID amlodipine 5 mg tablet 5 mg PO QDAY hydrochlorothiazide 25 mg tablet 25 mg PO QAM felodipine 5 mg tablet extended release 24 hr 5 mg PO QDAY valsartan 320 mg tablet 320 mg PO QDAY atorvastatin 80 mg tablet 80 mg PO DAILY Qty: 90 1RF niacinamide 500 mg tablet 500 mg PO DAILY Qty: 90 1RF pantoprazole 40 mg tablet,delayed release (DR/EC) 40 mg PO BID Qty: 180 1RF (DME) blood-glucose meter [Blood Glucose Monitoring] Kit See Rx Instructions .ROUTE Qty: 1 0RF Rx Instructions: As directed (DME) Blood Glucose Test Strip See Rx Instructions .ROUTE Qty: 50 4RF Rx Instructions: As directed (DME) lancets [Easy Touch Lancets] 28 gauge misc See Rx Instructions .ROUTE Qty: 100 3RF Rx Instructions: As directed Did you review [place] [employer] for ALL controlled substances?: Not Applicable ED Provider: GIOVANA MOSCOSO Condition: Stable
[2023-08-16 12:35] LABS: TROPONIN I 0.017 ng/ml (0.0000-0.120)
[2023-08-16 12:54] LABS: THYROID STIMULATING HORMONE 5.14 uIU/L (0.465-4.68)
--- NOTE | 2023-08-16 13:41 | CT ---
EXAM: CT ABDOMEN AND PELVIS WITH CONTRAST HISTORY: Abdominal and pelvic pain. TECHNIQUE: CT acquisition of the abdomen and pelvis from the lower thorax through the pelvis followin g IV contrast administration. 2-D coronal and sagittal reformatted images were obtained from the axi al source images. IV Contrast: 100 mL of Visipaque 320 administered. Oral Contrast: None. CT Dose Reduction Techniques Performed: Yes. COMPARISON: None. FINDINGS: Lower Thorax: Within normal limits. Liver: No mass. Normal morphology. Biliary: The gallbladder and bile ducts are normal. Pancreas: No mass or evidence of pancreatitis. No duct dilation. Spleen: No mass. No splenomegaly. Benign calcification. Adrenals: No mass. Kidneys/Ureters: No renal mass. No calculus or hydronephrosis. GI Tract: Scattered colonic diverticula without pericolonic inflammation. Colon shows no other focal abnormality. The appendix appears normal. Small bowel shows no focal abnormality or obstruction to the stomach does show a moderate hiatal hernia and otherwise unremarkable. Peritoneal Cavity: No free air, free fluid, fluid collections or areas of inflammation. Retroperitoneum: No fluid collection. Lymph Nodes: No lymphadenopathy. Vasculature: Mild aortic atherosclerotic calcifications. No aortic or iliac aneurysm. Celiac, super ior mesenteric, and inferior mesenteric arteries are grossly patent. Limited assessment of the galdino l and hepatic veins and IVC is unremarkable within limitations of the phase of IV contrast. Splenic artery calcifications Pelvis: No mass. Bladder is normal. The uterus is not visualized. The remaining pelvic structures v isualized within normal limits. Vascular phleboliths. Bones/Soft Tissues: No fracture or lytic lesion. Degenerative changes seen in the lumbar spine. Post surgical changes to the L3 through L5 level without sequelae. Degenerative changes seen in both hips . Visualized abdominal wall soft tissues are unremarkable. IMPRESSION: 1. No acute abnormality of the abdomen and pelvis. 2. Diverticulosis without radiographic indication of diverticulitis. 3. Other chronic and non emergent findings as above. All CT scans are performed using dose optimization techniques as appropriate to the performed exam an d include at least one of the following: Automated exposure control, adjustment of the mA and/or kV according t o size, and the use of iterative reconstruction technique.
[2023-08-16] MEDS: SODIUM CHLORIDE 1,000 ML IV ONE (13:55)
[2023-08-16] MEDS: DEXTROSE 50%-WATER ABBOJECT IVP ONE (13:58)
[2023-08-16] MEDS: HUMULIN R IVP ONE (13:59)
[2023-08-16] MEDS: CALCIUM GLUCONATE 1,000 MG/100 ML NS 1,000 MG/100 ML BAG IV ONE (14:03)
[2023-08-16] MEDS ORDERED: ZOFRAN ODT PO PRN (14:29)
--- NOTE | 2023-08-16 14:32 | PCM ---
Date of Service Date Seen by Provider: 08/16/23 Time Seen by Provider: 14:45 Admit Day/Time Admission Date: 08/16/23 Admission Time: 13:59 Reason for Admission Chief Complaint: [facility] Provider Hospital Provider: Pushpa Gupat PA-c , [facility] [place] Primary Care Physician: SUZAN CONKLIN MD History of Present Illness History of Present Illness: Patient is a 78 year old female from home with pmhx of anemia, DMT2, CKD, hypertension, hyperlipidemia, gerd who presents for overall not feeling well. Patient states for at the past 6 months she has felt like passing out when she moves. She has stopped doing shopping, out to eat, etc because she's worried about passing out. She feels very off balance and unsteady. She also feels shaky. Then today she had upset stomach when eating. In the ER she was found to have some dehydration. CT abd/pelvis negative for acute findings. She was given fluids. Once on the floor she was found to have significant orthostatic hypotension, s ystolic dropping about 80 points. Pt symptomatic with it as well. Case Discussed With Case Discussed With: Patient's case was discussed with the ER Physicians, Dr. Lezama. [facility] Medical History Stroke I63.9 - Cerebral infarction, unspecified (ICD-10) Hearing loss H91.90 - Unspecified hearing loss, unspecified ear (ICD-10) GERD (gastroesophageal reflux disease) K21.9 - Gastro-esophageal reflux disease without esophagitis (ICD-10) DDD (degenerative disc disease), lumbar M51.36 - Other intervertebral disc degeneration, lumbar region (ICD-10) Arthritis M19.90 - Unspecified osteoarthritis, unspecified site (ICD-10) Surgical History History of hysterectomy per pt cva after hyst takes asa 325mg 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) Family History FATHER Cancer Mother Diabetes Acute kidney failure SISTER COPD (chronic obstructive pulmonary disease) Social History Smoking and tobacco status: Never smoker Alcohol intake: current Substance use type: does not use Household members: spouse Marital status: M Lives independently: Yes Number of children: 2 Pets and animals: Yes Current gender identity: female Seatbelt use: always Drives intoxicated or rides with intoxicated route sales delivery driver: No Water heater temperature set < 120 degrees: Yes Working smoke detector in home: Yes Fire extinguisher in home: Yes Carbon monoxide detector in home: Yes Allergies Allergies Allergy/AdvReac Type Severity Reaction Status Date / Time Sulfa (Sulfonamide AdvReac Hives Verified 08/16/23 11:50 Antibiotics) Current Medications Home Medications aspirin 325 mg tablet 325 mg PO DAILY 05/17/17 [History Confirmed 08/16/23 Last Taken 08/16/23 11:00] omega-3 fatty acids-fish oil 340 mg-1,000 mg capsule (Fish Oil) 2 ea PO DAILY 05/17/17 [History Confirmed 08/16/23 Last Taken 08/16/23 11:00] cinnamon bark 500 mg capsule (Cinnamon) 500 mg PO DAILY 02/18/21 [History Confirmed 08/16/23 Last Taken 08/16/23 11:00] cranberry extract 250 mg tablet 250 mg PO DAILY 02/18/21 [History Confirmed 08/16/23 Last Taken 08/16/23 11:00] atorvastatin 80 mg tablet 80 mg PO DAILY #90 tabs 12/22/22 [Rx Confirmed 08/16/23 Last Taken 08/16/23 11:00] niacinamide 500 mg tablet 500 mg PO DAILY #90 tabs 12/22/22 [Rx Confirmed 08/16/23 Last Taken 08/16/23 11:00] pantoprazole 40 mg tablet,delayed release 40 mg PO BID #180 tabs 12/22/22 [Rx Confirmed 08/16/23 Last Taken 08/16/23 11:00] lidocaine 5 % topical patch 1 patch topical DAILY #30 ea 04/14/23 [Rx Confirmed 08/16/23 Last Taken Unknown] amlodipine 5 mg tablet 5 mg PO QDAY 04/20/23 [History Confirmed 08/16/23 Last Taken Unknown] felodipine 5 mg tablet,extended release 24 hr 5 mg PO QDAY 04/20/23 [History Confirmed 08/16/23 Last Taken 08/16/23 11:00] hydrochlorothiazide 25 mg tablet 25 mg PO QAM 04/20/23 [History Confirmed 08/16/23 Last Taken 08/16/23 11:00] valsartan 320 mg tablet 320 mg PO QDAY 04/20/23 [History Confirmed 08/16/23 Last Taken 08/16/23 11:00] blood sugar diagnostic (Blood Glucose Test strips) #50 ea 06/21/23 [Rx Confirmed 08/16/23 Last Taken Unknown] blood-glucose meter (Blood Glucose Monitoring kit) #1 ea 06/21/23 [Rx Confirmed 08/16/23 Last Taken Unknown] lancets 28 gauge (Easy Touch Lancets) #100 ea 06/21/23 [Rx Confirmed 08/16/23 Last Taken Unknown] cholecalciferol (vitamin D3) 1,250 mcg (50,000 unit) capsule See Rx Instructions .Route .COMPLEX #12 caps 07/03/23 [Rx Confirmed 08/16/23 Last Taken 08/16/23 11:00] folic acid 1 mg tablet 1 mg PO DAILY 08/16/23 [History Confirmed 08/16/23 Last Taken 08/16/23 11:00] metformin 500 mg tablet 500 mg PO BID 08/16/23 [History Confirmed 08/16/23 Last Taken 08/16/23 11:00] Home Acetaminophen (Acetaminophen 325 Mg Tablet) 650 mg PO Q4H PRN PRN Reason: Mild Pain Last Admin: 08/16/23 20:08 Dose: 650 mg Aspirin (Aspirin 325 Mg Tablet.) 325 mg PO DAILY [facility] Last Admin: 08/17/23 09:28 Dose: 325 mg Atorvastatin Calcium (Atorvastatin Calcium 20 Mg Tablet) 80 mg PO DAILY [facility] Last Admin: 08/17/23 09:29 Dose: 80 mg Sodium Chloride (Sodium Chloride) 1,000 mls @ 100 mls/hr IV .Q10H [facility] Last Admin: 08/17/23 02:23 Dose: 100 mls/hr Ondansetron HCl (Ondansetron Hcl 4 Mg Tab.Rapdis) 4 mg PO Q8H PRN PRN Reason: Nausea / Vomiting Pantoprazole Sodium (Pantoprazole Sodium 40 Mg Tablet.) 40 mg PO BID [facility] Last Admin: 08/17/23 09:28 Dose: 40 mg Valsartan (Valsartan 160 Mg Tablet) 320 mg PO DAILY [facility] Last Admin: 08/17/23 09:27 Dose: 320 mg Discontinued Medications Dextrose (Dextrose 50 % In Water 50 Ml Disp.Syrin) 50 ml IVP ONCE ONE Stop: 08/16/23 12:57 Last Admin: 08/16/23 13:58 Dose: 50 ml CALCIUM GLUC IN NACL, ISO-OSM (Calcium Gluconate 1,000 Mg/100 Ml Ns) 1,000 mg in 100 mls @ 400 mls/hr IV ONCE ONE Stop: 08/16/23 13:08 Last Admin: 08/16/23 14:03 Dose: 400 mls/hr Sodium Chloride (Sodium Chloride) 1,000 mls @ 1,000 mls/hr IV BOLUS ONE Stop: 08/16/23 14:00 Last Admin: 08/16/23 13:55 Dose: 1,000 mls/hr Acetaminophen (Acetaminophen) 1,000 mg in 100 mls @ 400 mls/hr IV ONCE ONE Stop: 08/16/23 14:49 Last Admin: 08/16/23 14:59 Dose: 400 mls/hr Insulin Human Regular (Insulin Regular, Human 100 Unit/Ml (3ml)) 5 unit IVP ONCE ONE Stop: 08/16/23 12:57 Last Admin: 08/16/23 13:59 Dose: 5 unit Opioid Naive vs. Tolerant Does Patient Take Opioids?: No Is Patient Opioid Naive?: Yes What is Opioid Naive?: *Opioid Naive implies the patient is not already taking opioids or not chronically receiving opioids on a daily basis. *PRN dosing is not "usually" associated with tolerance. *Patients are at higher risk of over-sedation and aspiration. Is Patient Opioid Tolerant?: No What is Opioid Tolerant?: *Opioid Tolerance implies less than the expected response to an opioid. *Acquired tolerance is defined by the patient taking 60mg of oral morphine daily (or equianalgesic dose of another opioid) for 1 week or more. *Often associated with chronic pain. *May take more than usual dose to achieve desired pain control. Review of Systems Constitutional: Reports Fatigue and Weakness Head: Reports Normocephalic and Atraumatic Cardiovascular: Denies Chest pain, Chest Pressure or Edema Respiratory: Denies Cough or Shortness of air Gastrointestinal: Reports Nausea; Denies Vomiting, Abdominal pain or Melena Genitourinary: Denies Dysuria or Frequency Dermatologic: Denies Rashes Neurological: Reports Dizziness, Syncope (+Near syncope ), Weakness and Problems with walking Physical examination Most Recent Vital Signs: Most Recent Vital Signs Temperature 98.1 F 08/16/23 11:36 Temperature Source Infrared 08/16/23 11:36 Pulse Rate 98 08/16/23 14:20 Respiratory Rate 16 08/16/23 14:20 Blood Pressure 117/61 08/16/23 14:20 O2 Sat by Pulse Oximetry 97 08/16/23 14:20 Height 5 ft 1 in 08/16/23 11:36 Weight 122 lb 08/16/23 11:36 Appearance: Positive No Apparent Distress and Alert and Oriented x3 Skin: Positive [place] and Warm; Negative Rashes or Good Turgor HEENT: Positive Normocephalic and Atraumatic; Negative Oral Mucous Moist Neck: Positive Supple and Midline Trachea Chest/Lungs: Positive Clear to Auscultation Bilaterally; Negative Rales, Rhonci or Wheezes Heart: Positive RRR and Murmur GI/: Positive Soft, Nontender, Bowel Sounds Normal and No Distention Extremities: Negative Edema Neurological: Positive Cranial Nerves Intact, Alert, Oriented and Other (+generalized weakness ) Psychiatric: Positive Oriented x4, Appropriate Mood and Appropriate Affect Labs This Visit Labs This Visit: Labs This Visit 08/16/23 08/16/23 12:06 12:13 WBC 7.32 RBC 3.59 L Hgb 11.7 L Hct 35.2 L MCV 98.1 MCH 32.6 H MCHC 33.2 RDW Coeff of Tim 14.6 Plt Count 229 Immature Gran % (Auto) 0.3 Neut % (Auto) 74.2 Lymph % (Auto) 19.1 [place] % (Auto) 5.7 Eos % (Auto) 0.3 Baso % (Auto) 0.4 Neut # (Auto) 5.4 Lymph # (Auto) 1.4 [place] # (Auto) 0.4 Eos # (Auto) 0.0 Baso # (Auto) 0.0 Immature Gran # (Auto) 0.0 Sodium 135.6 Potassium 5.55 H Chloride 96.9 L Carbon Dioxide 19.4 L Anion Gap 24.85 BUN 32.0 H Creatinine 1.42 H Estimated GFR (MDRD) 36.00 BUN/Creatinine Ratio 22.53 Glucose 152.9 H Calcium 9.61 Total Bilirubin 0.96 AST 90.1 H ALT 51.8 H Alkaline Phosphatase 106.8 Troponin I 0.017 NT-Pro-B Natriuret Pep 396 H Total Protein 6.84 Albumin 4.52 Globulin 2.32 Albumin/Globulin Ratio 1.94 TSH 5.140 H Urine Color Yellow Urine Clarity Clear Urine pH 5.5 Ur Specific [place] 1.020 Urine Protein Negative Urine Glucose (UA) Negative Urine Ketones Negative Urine Blood Negative Urine Nitrite Negative Urine Bilirubin Negative Urine Urobilinogen 0.2 Ur Leukocyte Esterase Negative Imaging Imaging: EXAM: CT ABDOMEN AND PELVIS WITH CONTRAST HISTORY: Abdominal and pelvic pain. TECHNIQUE: CT acquisition of the abdomen and pelvis from the lower thorax through the pelvis following IV contrast administration. 2-D coronal and sagittal reformatted images were obtained from the axial source images. IV Contrast: 100 mL of Visipaque 320 administered. Oral Contrast: None. CT Dose Reduction Techniques Performed: Yes. COMPARISON: None. FINDINGS: Lower Thorax: Within normal limits. Liver: No mass. Normal morphology. Biliary: The gallbladder and bile ducts are normal. Pancreas: No mass or evidence of pancreatitis. No duct dilation. Spleen: No mass. No splenomegaly. Benign calcification. Adrenals: No mass. Kidneys/Ureters: No renal mass. No calculus or hydronephrosis. GI Tract: Scattered colonic diverticula without pericolonic inflammation. Colon shows no other focal abnormality. The appendix appears normal. Small bowel shows no focal abnormality or obstruction to the stomach does show a moderate hiatal hernia and otherwise unremarkable. Peritoneal Cavity: No free air, free fluid, fluid collections or areas of inflammation. Retroperitoneum: No fluid collection. Lymph Nodes: No lymphadenopathy. Vasculature: Mild aortic atherosclerotic calcifications. No aortic or iliac aneurysm. Celiac, superior mesenteric, and inferior mesenteric arteries are grossly patent. Limited assessment of the portal and hepatic veins and IVC is unremarkable within limitations of the phase of IV contrast. Splenic artery calcifications Pelvis: No mass. Bladder is normal. The uterus is not visualized. The remaining pelvic structures visualized within normal limits. Vascular phleboliths. Bones/Soft Tissues: No fracture or lytic lesion. Degenerative changes seen in the lumbar spine. Postsurgical changes to the L3 through L5 level without sequelae. Degenerative changes seen in both hips. Visualized abdominal wall soft tissues are unremarkable. IMPRESSION: 1. No acute abnormality of the abdomen and pelvis. 2. Diverticulosis without radiographic indication of diverticulitis. 3. Other chronic and non emergent findings as above. EXAM: CHEST ONE-VIEW HISTORY: Weakness COMPARISON: None FINDINGS: A moderate hiatus hernia is noted. The cardiomediastinal silhouette is normal. The pulmonary vasculature is normal. No consolidating infiltrates are detected. No pneumothoraces or pleural effusions. IMPRESSION: 1. No acute cardiopulmonary disease. 2. Moderate hiatus hernia. Review Statement Review Statement: I have independently reviewed and interpreted the labs/EKGs/imaging that were ordered by the ER provider. I have reviewed all outside records that are available currently in our EMR including imaging/notes/labs from previous visits. Plan Plan: 1. Orthostatic hypotension - Likely contributing to her symptoms. Stop hctz and felodipine. [place] hose. Fluids. Recheck tomorrow. 2. KIMBERLEY, stage 1 in setting of dehydration - Cont fluids 3. Dehydration - Cont fluids 4. Hyperkalemia - Likely due to dehydration, cont fluids, recheck cmp tomorrow. No ekg changes. 5. Hypertension - Holding hctz and felodipine 6. Hyperlipidemia - Cont statin 7. DMT2 - glucose controlled, hold metformin 8. GERD - Cont home meds DVT Prophylaxis: Lovenox Time Spent: Greater than 80 minutes spent with patient, 50% of the time spent with this patient was devoted to counseling and coordination of care. [facility] minutes spent discussing advance care planning. Admit to: Obs Discussed Plan of Care with Dr. Anant Conklin. Medications Medication Orders: Medications Ordered Category Date Time Status Acetaminophen [Tylenol] Meds 08/16/23 14:29 Ordered 650 mg PO Q4H PRN Ondansetron [Zofran Odt] Meds 08/16/23 14:29 Ordered 4 mg PO Q8H PRN SODIUM CHLORIDE 0.9% 1000 ML @ 100 MLS/HR Meds 08/16/23 14:30 Ordered Sodium Chloride 0.9% [Sodium Chloride] 1,000 ml IV 100 mls/hr
[2023-08-16 14:44] LABS: SARS COV-2 RNA RAPID NAAT NEGATIVE (NEGATIVE)
[2023-08-16] MEDS: ACETAMINOPHEN 1,000 MG/100 ML BAG IV ONE (14:59)
[2023-08-16 16:04] VITALS: BMI 23.1
[2023-08-16] MEDS: SODIUM CHLORIDE 1,000 ML IV SCH (16:31)
[2023-08-16] MEDS: DIOVAN PO SCH (20:00)
[2023-08-16] MEDS: TYLENOL PO PRN (20:08)
[2023-08-16] MEDS: PROTONIX PO SCH (21:07)
[2023-08-17 05:55] LABS: BASOPHILS % (AUTO) 0.5 % (0.0-3.0); EOSINOPHILS % (AUTO) 0.2 % (0.0-7.0); HEMATOCRIT 28.8 % (37.0-47.0); IMMATURE GRANULOCYTE % (AUTO) 0.5 % (0.0-5.0); LYMPHOCYTES # (AUTO) 0.6 K/uL (0.60-3.4); LYMPHOCYTES % (AUTO) 14.7 (10.0-50.0); MEAN CORPUSCULAR HEMOGLOBIN 32.3 pg (27.0-31.0); MEAN CORPUSCULAR HGB CONC 33.3 (31.8-35.4); MONOCYTES # (AUTO) 0.4 K/uL (0.4-2.0); MONOCYTES % (AUTO) 9.5 (0-10); NEUTROPHILS # (AUTO) 3.2 K/ul (2.0-6.9); NEUTROPHILS % (AUTO) 74.6 % (42.2-75.2); RED BLOOD COUNT 2.97 10^6/ul (4.20-5.40)
[2023-08-17 06:04] LABS: HEMOGLOBIN 9.6 g/dl (12.0-16.0); PLATELET COUNT 159 10^3/uL (140-440)
[2023-08-17 06:09] LABS: ALANINE AMINOTRANSFERASE 37.3 U/L (0-35); ALBUMIN 2.91 g/dL (3.5-5.0); ALKALINE PHOSPHATASE 81.2 U/L (53-141); ASPARTATE AMINO TRANSFERASE 51.1 U/L (14-36); BILIRUBIN,TOTAL 0.78 mg/dL (0.2-1.3); BLOOD UREA NITROGEN 24.7 mg/dL (7-17); CALCIUM 8.23 mg/dL (8.4-10.2); CHLORIDE 103.5 mmol/L (98-107); CREATININE 1.09 mg/dL (0.60-1.30); GLUCOSE 120.7 mg/dL (74-106); POTASSIUM 4.18 mmol/L (3.5-5.1); SODIUM 132.9 mmol/L (134.5-145); TOTAL PROTEIN 4.8 g/dL (6.3-8.2)
[2023-08-17 06:23] LABS: CARBON DIOXIDE 28.5 mmol/L (22-30.0)
[2023-08-17] MEDS: ASPIRIN EC PO SCH (09:28)
[2023-08-17] MEDS: LIPITOR PO SCH (09:29)
--- NOTE | 2023-08-17 11:27 | PCM.PROG ---
Date/Time Seen Date Seen by Provider: 08/17/23 Time Seen by Provider: 08:45 Provider [facility]USH[facility] Chief Complaint Chief Complaint: KIMBERLEY Subjective Subjective: Patient orthostatics improved today, feeling better. However she has been having watery diarrhea about every hour through the night with some abdominal cramping. Objective Appearance: Positive No Apparent Distress and Alert and Oriented x3 Chest/Lungs: Positive Clear to Auscultation Bilaterally; Negative Rales, Rhonci or Wheezes Heart: Positive RRR and Murmur GI/: Positive Soft, Nontender, Bowel Sounds Normal and No Distention Neurological: Positive Cranial Nerves Intact, Alert, Oriented and Other (+generalized weakness ) Vital Signs Vital Signs: Vital Signs: Last 24 Hours 08/16/23 11:36 08/16/23 14:20 08/16/23 15:05 Temperature 98.1 F Temperature Source Infrared Pulse Rate 90 98 102 H Respiratory Rate 16 16 16 Blood Pressure 142/74 H 117/61 124/76 Blood Pressure Mean Blood Pressure Right Arm Blood Pressure Location Blood Pressure Position O2 Sat by Pulse Oximetry 99 97 97 Oxygen Delivery Method Height 5 ft 1 in Weight 122 lb Telemetry Type Telemetry Monitoring Telemetry Heart Rate EKG LA Interval EKG QRS Interval Telemetry Strip Reading 08/16/23 15:25 08/16/23 15:35 08/16/23 15:45 Temperature 98.4 F Temperature Source Temporal Artery Scan Pulse Rate 98 98 96 Respiratory Rate 20 Blood Pressure 165/59 H 105/68 Blood Pressure Mean Blood Pressure Right Arm 165/59 Blood Pressure Location Right Arm Right Arm Blood Pressure Position Supine Supine Sitting O2 Sat by Pulse Oximetry 99 Oxygen Delivery Method Room Air Height 5 ft 1 in Weight 122 lb 8 oz Telemetry Type Telemetry Monitoring Telemetry Heart Rate EKG LA Interval EKG QRS Interval Telemetry Strip Reading 08/16/23 15:50 08/16/23 16:00 08/16/23 17:00 Temperature Temperature Source Pulse Rate 108 H Respiratory Rate Blood Pressure 85/65 L Blood Pressure Mean Blood Pressure Right Arm Blood Pressure Location Right Arm Blood Pressure Position Standing O2 Sat by Pulse Oximetry Oxygen Delivery Method Room Air Room Air Height Weight Telemetry Type Telemetry Monitoring Telemetry Heart Rate EKG LA Interval EKG QRS Interval Telemetry Strip Reading 08/16/23 18:00 08/16/23 18:00 08/16/23 19:00 Temperature 97.6 F Temperature Source Oral Pulse Rate 86 Respiratory Rate 16 Blood Pressure 128/76 Blood Pressure Mean 93 Blood Pressure Right Arm Blood Pressure Location Right Arm Blood Pressure Position Sitting O2 Sat by Pulse Oximetry 95 Oxygen Delivery Method Room Air Room Air Height Weight Telemetry Type Remote Telemetry Telemetry Monitoring Started Telemetry Heart Rate 90 EKG LA Interval 0.21 H EKG QRS Interval 0.08 Telemetry Strip Reading SR w/ BBB 08/16/23 19:00 08/16/23 20:00 08/16/23 20:38 Temperature 97.7 F Temperature Source Temporal Artery Scan Pulse Rate 90 Respiratory Rate Blood Pressure 155/78 H Blood Pressure Mean 103 Blood Pressure Right Arm Blood Pressure Location Right Arm Blood Pressure Position Supine O2 Sat by Pulse Oximetry 95 Oxygen Delivery Method Room Air Room Air Room Air Height Weight Telemetry Type Telemetry Monitoring Telemetry Heart Rate EKG LA Interval EKG QRS Interval Telemetry Strip Reading 08/16/23 21:00 08/16/23 22:00 08/16/23 23:00 Temperature Temperature Source Pulse Rate Respiratory Rate Blood Pressure Blood Pressure Mean Blood Pressure Right Arm Blood Pressure Location Blood Pressure Position O2 Sat by Pulse Oximetry Oxygen Delivery Method Room Air Room Air Room Air Height Weight Telemetry Type Telemetry Monitoring Telemetry Heart Rate EKG LA Interval EKG QRS Interval Telemetry Strip Reading 08/17/23 00:00 08/17/23 01:00 08/17/23 01:00 Temperature Temperature Source Pulse Rate Respiratory Rate Blood Pressure Blood Pressure Mean Blood Pressure Right Arm Blood Pressure Location Blood Pressure Position O2 Sat by Pulse Oximetry Oxygen Delivery Method Room Air Room Air Height Weight Telemetry Type Remote Telemetry Telemetry Monitoring Continues Telemetry Heart Rate 83 EKG LA Interval 0.20 EKG QRS Interval 0.07 Telemetry Strip Reading SR 08/17/23 02:00 08/17/23 02:00 08/17/23 03:00 Temperature 97.4 F L Temperature Source Temporal Artery Scan Pulse Rate 82 Respiratory Rate 17 Blood Pressure 138/88 Blood Pressure Mean 104 Blood Pressure Right Arm Blood Pressure Location Right Arm Blood Pressure Position Supine O2 Sat by Pulse Oximetry 97 Oxygen Delivery Method Room Air Room Air Room Air Height Weight Telemetry Type Telemetry Monitoring Telemetry Heart Rate EKG LA Interval EKG QRS Interval Telemetry Strip Reading 08/17/23 04:00 08/17/23 05:00 08/17/23 05:54 Temperature Temperature Source Pulse Rate Respiratory Rate Blood Pressure Blood Pressure Mean Blood Pressure Right Arm Blood Pressure Location Blood Pressure Position O2 Sat by Pulse Oximetry Oxygen Delivery Method Room Air Room Air Room Air Height Weight Telemetry Type Telemetry Monitoring Telemetry Heart Rate EKG LA Interval EKG QRS Interval Telemetry Strip Reading 08/17/23 05:54 08/17/23 06:22 08/17/23 06:23 Temperature 97.6 F Temperature Source Temporal Artery Scan Pulse Rate 75 78 91 Respiratory Rate 16 Blood Pressure 127/76 149/77 H 148/54 H Blood Pressure Mean 93 Blood Pressure Right Arm Blood Pressure Location Right Arm Left Arm Right Arm Blood Pressure Position Supine Supine Sitting O2 Sat by Pulse Oximetry 98 Oxygen Delivery Method Room Air Height Weight Telemetry Type Telemetry Monitoring Telemetry Heart Rate EKG LA Interval EKG QRS Interval Telemetry Strip Reading 08/17/23 06:23 08/17/23 07:00 08/17/23 08:00 Temperature Temperature Source Pulse Rate 100 Respiratory Rate Blood Pressure 130/81 Blood Pressure Mean Blood Pressure Right Arm Blood Pressure Location Right Arm Blood Pressure Position Standing O2 Sat by Pulse Oximetry Oxygen Delivery Method Room Air Room Air Height Weight Telemetry Type Telemetry Monitoring Telemetry Heart Rate EKG LA Interval EKG QRS Interval Telemetry Strip Reading 08/17/23 09:00 08/17/23 09:55 08/17/23 09:57 Temperature Temperature Source Pulse Rate 72 Respiratory Rate Blood Pressure 169/90 H Blood Pressure Mean 116 Blood Pressure Right Arm Blood Pressure Location Right Arm Blood Pressure Position Supine O2 Sat by Pulse Oximetry 98 Oxygen Delivery Method Room Air Room Air Room Air Height Weight Telemetry Type Telemetry Monitoring Telemetry Heart Rate EKG LA Interval EKG QRS Interval Telemetry Strip Reading 08/17/23 09:58 08/17/23 10:00 08/17/23 11:00 Temperature 97.8 F Temperature Source Temporal Artery Scan Pulse Rate 97 79 Respiratory Rate 18 Blood Pressure 132/66 171/90 H Blood Pressure Mean 88 117 Blood Pressure Right Arm Blood Pressure Location Right Radial Artery Right Arm Blood Pressure Position Standing Sitting O2 Sat by Pulse Oximetry 96 97 Oxygen Delivery Method Room Air Room Air Room Air Height Weight Telemetry Type Telemetry Monitoring Telemetry Heart Rate EKG LA Interval EKG QRS Interval Telemetry Strip Reading Lab Results Lab Results: Lab Results: Last 24 Hours 06/08/16/23 08/16/23 05:34 14:22 12:13 WBC 4.30 L RBC 2.97 L Hgb 9.6 L Hct 28.8 L D MCV 97.0 MCH 32.3 H MCHC 33.3 RDW Coeff of Tim 15.0 H Plt Count 159 D Immature Gran % (Auto) 0.5 Neut % (Auto) 74.6 Lymph % (Auto) 14.7 [place] % (Auto) 9.5 Eos % (Auto) 0.2 Baso % (Auto) 0.5 Neut # (Auto) 3.2 Lymph # (Auto) 0.6 [place] # (Auto) 0.4 Eos # (Auto) 0.0 Baso # (Auto) 0.0 Immature Gran # (Auto) 0.0 Sodium 132.9 L Potassium 4.18 Chloride 103.5 Carbon Dioxide 28.5 D Anion Gap 5.08 BUN 24.7 H Creatinine 1.09 Estimated GFR (MDRD) 49.00 BUN/Creatinine Ratio 22.66 Glucose 120.7 H Calcium 8.23 L Total Bilirubin 0.78 AST 51.1 H D ALT 37.3 H Alkaline Phosphatase 81.2 D Troponin I NT-Pro-B Natriuret Pep Total Protein 4.80 L Albumin 2.91 L Globulin 1.89 Albumin/Globulin Ratio 1.53 TSH Urine Color Yellow Urine Clarity Clear Urine pH 5.5 Ur Specific [place] 1.020 Urine Protein Negative Urine Glucose (UA) Negative Urine Ketones Negative Urine Blood Negative Urine Nitrite Negative Urine Bilirubin Negative Urine Urobilinogen 0.2 Ur Leukocyte Esterase Negative SARS CoV-2 RNA Rapid SERENITY Negative 08/16/23 12:06 WBC 7.32 RBC 3.59 L Hgb 11.7 L Hct 35.2 L MCV 98.1 MCH 32.6 H MCHC 33.2 RDW Coeff of Tim 14.6 Plt Count 229 Immature Gran % (Auto) 0.3 Neut % (Auto) 74.2 Lymph % (Auto) 19.1 [place] % (Auto) 5.7 Eos % (Auto) 0.3 Baso % (Auto) 0.4 Neut # (Auto) 5.4 Lymph # (Auto) 1.4 [place] # (Auto) 0.4 Eos # (Auto) 0.0 Baso # (Auto) 0.0 Immature Gran # (Auto) 0.0 Sodium 135.6 Potassium 5.55 H Chloride 96.9 L Carbon Dioxide 19.4 L Anion Gap 24.85 BUN 32.0 H Creatinine 1.42 H Estimated GFR (MDRD) 36.00 BUN/Creatinine Ratio 22.53 Glucose 152.9 H Calcium 9.61 Total Bilirubin 0.96 AST 90.1 H ALT 51.8 H Alkaline Phosphatase 106.8 Troponin I 0.017 NT-Pro-B Natriuret Pep 396 H Total Protein 6.84 Albumin 4.52 Globulin 2.32 Albumin/Globulin Ratio 1.94 TSH 5.140 H Urine Color Urine Clarity Urine pH Ur Specific [place] Urine Protein Urine Glucose (UA) Urine Ketones Urine Blood Urine Nitrite Urine Bilirubin Urine Urobilinogen Ur Leukocyte Esterase SARS CoV-2 RNA Rapid SERENITY Additional Comments Additional Comments: I have independently reviewed and interpreted the labs/EKGs/imaging ordered during this hospital stay. I have reviewed outside records that are available in our EMR that pertain to medical stay including imaging/notes/labs from previous visits. Active Medications Active Medications: Medications Generic Name Dose Route Start Last Admin Trade Name Freq PRN Reason Stop Dose Admin Acetaminophen 650 mg 08/16/23 14:29 08/16/23 20:08 Acetaminophen 325 Mg Tablet PO 650 mg Q4H PRN Administration Mild Pain Aspirin 325 mg 08/17/23 09:00 08/17/23 09:28 Aspirin 325 Mg Tablet. PO 325 mg DAILY MUKUL Administration Atorvastatin Calcium 80 mg 08/17/23 09:00 08/17/23 09:29 Atorvastatin Calcium 20 Mg Tablet PO 80 mg DAILY MUKUL Administration Sodium Chloride 1,000 mls @ 100 mls/hr 08/16/23 14:30 08/17/23 02:23 Sodium Chloride IV 100 mls/hr .Q10H MUKUL Administration Ondansetron HCl 4 mg 08/16/23 14:29 Ondansetron Hcl 4 Mg Tab.Rapdis PO Q8H PRN Nausea / Vomiting Pantoprazole Sodium 40 mg 08/16/23 21:00 08/17/23 09:28 Pantoprazole Sodium 40 Mg Tablet. PO 40 mg BID MUKUL Administration Valsartan 320 mg 08/16/23 19:00 08/17/23 09:27 Valsartan 160 Mg Tablet PO 320 mg DAILY MUKUL Administration Plan Plan: 1. Orthostatic hypotension - Likely contributing to her symptoms. Improved. Cont to hold hctz and felodipine. Guerrero hose. Fluids. Recheck tomorrow. 2. KIMBERLEY, stage 1 in setting of dehydration - Resolved. Cont fluids 3. Dehydration - Resolved. Cont fluids 4. Hyperkalemia - Resolved. Likely due to dehydration, cont fluids, recheck cmp tomorrow. No ekg changes. 5. Hypertension - Holding hctz and felodipine 6. Hyperlipidemia - Cont statin 7. DMT2 - glucose controlled, hold metformin 8. GERD - Cont home meds 9. Gastroenteritis - Likely viral, ct abd/pelvis negative yesterday. Cont fluids. DVT: lovenox Dispo: Possible dc tomorrow if orthostats and diarrhea is improved Review Statement Review Statement: I have personally discussed and reviewed the patient's visit/currently labs/imaging/decision making with Dr. Conklin, my supervising attending. Greater that 50 minutes spent with patient, 50% of the time spent with this patient was devoted to counseling and coordination of care.
[2023-08-17] MEDS: LOVENOX SUBCUT SCH (12:38)
[2023-08-17] MEDS: IMODIUM PO PRN (15:20)
[2023-08-18 05:34] LABS: BASOPHILS % (AUTO) 0.3 % (0.0-3.0); EOSINOPHILS % (AUTO) 1.4 % (0.0-7.0); HEMATOCRIT 29.8 % (37.0-47.0); HEMOGLOBIN 9.7 g/dl (12.0-16.0); IMMATURE GRANULOCYTE % (AUTO) 0.3 % (0.0-5.0); LYMPHOCYTES # (AUTO) 0.8 K/uL (0.60-3.4); LYMPHOCYTES % (AUTO) 25.7 (10.0-50.0); MEAN CORPUSCULAR HEMOGLOBIN 32.6 pg (27.0-31.0); MEAN CORPUSCULAR HGB CONC 32.6 (31.8-35.4); MONOCYTES # (AUTO) 0.3 K/uL (0.4-2.0); MONOCYTES % (AUTO) 10.5 (0-10); NEUTROPHILS # (AUTO) 1.8 K/ul (2.0-6.9); NEUTROPHILS % (AUTO) 61.8 % (42.2-75.2); PLATELET COUNT 140 10^3/uL (140-440); RDW COEFFICIENT OF VARIATION 14.9 % (11.6-14.8); RED BLOOD COUNT 2.98 10^6/ul (4.20-5.40); WHITE BLOOD COUNT 2.96 K/ul (4.6-10.2)
[2023-08-18 06:02] LABS: ALANINE AMINOTRANSFERASE 32.9 U/L (0-35); ALBUMIN 3.01 g/dL (3.5-5.0); ALKALINE PHOSPHATASE 71.5 U/L (53-141); ASPARTATE AMINO TRANSFERASE 44.6 U/L (14-36); BILIRUBIN,TOTAL 0.84 mg/dL (0.2-1.3); BLOOD UREA NITROGEN 12.8 mg/dL (7-17); CALCIUM 8.26 mg/dL (8.4-10.2); CHLORIDE 106.2 mmol/L (98-107); CREATININE 0.96 mg/dL (0.60-1.30); GLUCOSE 109.1 mg/dL (74-106); POTASSIUM 4.58 mmol/L (3.5-5.1); SODIUM 136.3 mmol/L (134.5-145); TOTAL PROTEIN 4.99 g/dL (6.3-8.2)
[2023-08-18 09:59] VITALS: BP 153/90; PULSE 95; RESP 18; TEMP 98.2
--- NOTE | 2023-08-18 10:57 | DCSUM ---
Admission Date Admission Date: 08/16/23 Discharge Date Discharge Date: 08/18/23 Admission Diagnosis Admission Diagnosis: 1. Orthostatic hypotension 2. KIMBERLEY, stage 1 in setting of dehydration 3. Dehydration 4. Hyperkalemia Discharge Diagnosis Discharge Diagnosis: 1. Orthostatic hypotension - resolved 2. KIMBERLEY, stage 1 in setting of dehydration - Resolved. 3. Dehydration - Resolved. 4. Hyperkalemia - Resolved. 5. Hypertension - Holding hctz and felodipine 6. Hyperlipidemia - Cont statin 7. DMT2 8. GERD - Cont home meds 9. Gastroenteritis - Likely viral, mild, resolved Hospital Provider Hospital Provider: PUSHPA GUPTA PA-C, [facility] Primary Care Physician Primary Care Physician: SUAZN MNAZANO MD Summary of History and Physical Summary of History and Physical: Patient is a 78 year old female from home with pmhx of anemia, DMT2, CKD, hypertension, hyperlipidemia, gerd who presents for overall not feeling well. Patient states for at the past 6 months she has felt like passing out when she moves. She has stopped doing shopping, out to eat, etc because she's worried about passing out. She feels very off balance and unsteady. She also feels shaky. Then today she had upset stomach when eating. In the ER she was found to have some dehydration. CT abd/pelvis negative for acute findings. She was given fluids. Once on the floor she was found to have significant orthostatic hypotension, systolic dropping about 80 points. Pt symptomatic with it as well. Hospital Course Subjective: Patient was found to have significant orthostatic hypotension. Patient states she's been taking her felodipine and hctz. These were held. Patient was hydrated. KIMBERLEY resolved. Orthostasis improved by 6.13. However patient was then having watery diarrhea. This resolved by night of 08/16. Today patient is feeling better, hasn't had any diarrhea through the night. Orthostasis resolved. Wearing heidi hose. Worked well with therapy, did not feel lightheaded or as if she was going to pass out. Therapy states she is somewhat weak and would benefit from home health. Pt is agreeable. Will discharge home with home health. Discontinue hctz and felodipine. Monitor BP at home, may need to add on another BP agent in the future to replace them. Patient is agreeable. F/u with pcp next week. Appearance: Pleasant, No Apparent Distress and Alert HEENT: MMM and Supple CVS: No Murmur Abdomen: Soft, Non-Tender and No Distention Respiratory: No Accessory Muscle Use Extremities: No Edema Vital Signs: Most Recent Vital Signs Temperature 98.2 F 08/18/23 09:58 Temperature Source Temporal Artery Scan 08/18/23 09:58 Temperature Source Infrared 08/16/23 11:36 Pulse Rate 95 08/18/23 09:59 Respiratory Rate 18 08/18/23 09:58 Blood Pressure 153/90 H 08/18/23 09:59 Blood Pressure Mean 111 08/18/23 09:59 Blood Pressure Right Arm 165/59 08/16/23 15:25 Blood Pressure Location Right Arm 08/18/23 09:59 Blood Pressure Position Standing 08/18/23 09:59 O2 Sat by Pulse Oximetry 98 08/18/23 09:59 Oxygen Delivery Method Room Air 08/18/23 10:00 Height 5 ft 1 in 08/16/23 15:25 Weight 122 lb 8 oz 08/16/23 15:25 Telemetry Type Remote Telemetry 08/18/23 07:00 Telemetry Monitoring Continues 08/18/23 07:00 Telemetry Heart Rate 84 08/18/23 07:00 EKG CA Interval 0.20 08/18/23 07:00 EKG QRS Interval 0.10 08/18/23 07:00 Telemetry Strip Reading NSR 08/18/23 07:00 Imaging: EXAM: CT ABDOMEN AND PELVIS WITH CONTRAST HISTORY: Abdominal and pelvic pain. TECHNIQUE: CT acquisition of the abdomen and pelvis from the lower thorax through the pelvis following IV contrast administration. 2-D coronal and sagittal reformatted images were obtained from the axial source images. IV Contrast: 100 mL of Visipaque 320 administered. Oral Contrast: None. CT Dose Reduction Techniques Performed: Yes. COMPARISON: None. FINDINGS: Lower Thorax: Within normal limits. Liver: No mass. Normal morphology. Biliary: The gallbladder and bile ducts are normal. Pancreas: No mass or evidence of pancreatitis. No duct dilation. Spleen: No mass. No splenomegaly. Benign calcification. Adrenals: No mass. Kidneys/Ureters: No renal mass. No calculus or hydronephrosis. GI Tract: Scattered colonic diverticula without pericolonic inflammation. Colon shows no other focal abnormality. The appendix appears normal. Small bowel shows no focal abnormality or obstruction to the stomach does show a moderate hiatal hernia and otherwise unremarkable. Peritoneal Cavity: No free air, free fluid, fluid collections or areas of inflammation. Retroperitoneum: No fluid collection. Lymph Nodes: No lymphadenopathy. Vasculature: Mild aortic atherosclerotic calcifications. No aortic or iliac aneurysm. Celiac, superior mesenteric, and inferior mesenteric arteries are grossly patent. Limited assessment of the portal and hepatic veins and IVC is unremarkable within limitations of the phase of IV contrast. Splenic artery calcifications Pelvis: No mass. Bladder is normal. The uterus is not visualized. The remaining pelvic structures visualized within normal limits. Vascular phleboliths. Bones/Soft Tissues: No fracture or lytic lesion. Degenerative changes seen in the lumbar spine. Postsurgical changes to the L3 through L5 level without sequelae. Degenerative changes seen in both hips. Visualized abdominal wall soft tissues are unremarkable. IMPRESSION: 1. No acute abnormality of the abdomen and pelvis. 2. Diverticulosis without radiographic indication of diverticulitis. 3. Other chronic and non emergent findings as above. EXAM: CHEST ONE-VIEW HISTORY: Weakness COMPARISON: None FINDINGS: A moderate hiatus hernia is noted. The cardiomediastinal silhouette is normal. The pulmonary vasculature is normal. No consolidating infiltrates are detected. No pneumothoraces or pleural effusions. IMPRESSION: 1. No acute cardiopulmonary disease. 2. Moderate hiatus hernia. Lab Results Last 24 Hours: 08/18/23 05:25 WBC 2.96 L RBC 2.98 L Hgb 9.7 L Hct 29.8 L MCV 100.0 H MCH 32.6 H MCHC 32.6 RDW Coeff of Tim 14.9 H Plt Count 140 Immature Gran % (Auto) 0.3 Neut % (Auto) 61.8 Lymph % (Auto) 25.7 [place] % (Auto) 10.5 H Eos % (Auto) 1.4 Baso % (Auto) 0.3 Neut # (Auto) 1.8 L Lymph # (Auto) 0.8 [place] # (Auto) 0.3 L Eos # (Auto) 0.0 Baso # (Auto) 0.0 Immature Gran # (Auto) 0.0 Sodium 136.3 Potassium 4.58 Chloride 106.2 Carbon Dioxide 29.0 Anion Gap 5.68 BUN 12.8 Creatinine 0.96 Estimated GFR (MDRD) 56.00 BUN/Creatinine Ratio 13.33 Glucose 109.1 H Calcium 8.26 L Total Bilirubin 0.84 AST 44.6 H ALT 32.9 Alkaline Phosphatase 71.5 Total Protein 4.99 L Albumin 3.01 L Globulin 1.98 Albumin/Globulin Ratio 1.52 Discharge Instructions Discharge Planning: Discharge Planning > [address] Anant Manzano. Discharge Medications: Medications at Discharge (Home Meds & RX) Discharge Plan Discharge Discharge Orders: Discharge Patient (ONCE); Ordered 08/18/23 Ordered By: PUSHPA GUPTA Activity Restrictions/Additional Instructions: DISCHARGE TO HOME DX: ORTHOSTATIC HYPOTENSION, KIMBERLEY, DEHYDRATION STOP FELODIPINE AND HYDROCHLOROTHIAZIDE (hctz) F/U WITH PCP NEXT WEEK WEAR YOUR HEIDI HOSE PUSH FLUIDS Instructions: Acute Kidney Injury (GEN), Hypotension (GEN) Care Plan Goals: Problem: Low blood pressure Goal: Medically managed blood pressure Instructions: Monitor blood pressure as needed Monitor for signs/symptoms of low blood pressure Review medication related to blood pressure Problem: Syncope Goal: Maintain safety during syncopal episodes Instructions: Have assistance with activity Change positions slowly during syncopal episodes Patient Disposition: HOME SELF-CARE Prescriptions: Continued cholecalciferol (vitamin D3) 1,250 mcg (50,000 unit) capsule See Rx Instructions .ROUTE .COMPLEX Qty: 12 0RF Dose Instruction: TAKE 1 CAPSULE BY MOUTH ONCE WEEKLY Rx Instructions: TAKE 1 CAPSULE BY MOUTH ONCE WEEKLY aspirin 325 MG tablet 325 mg PO DAILY Rx Instructions: DO NOT TAKE DAY OF PROCEDURE. Fish Oil 1 EACH capsule 2 ea PO DAILY cinnamon bark [Cinnamon] 500 mg Capsule 500 mg PO DAILY cranberry extract 250 mg Tablet 250 mg PO DAILY folic acid 1 mg tablet 1 mg PO DAILY Patient Comments: TAKE 1 TABLET BY MOUTH DAILY metformin 500 mg tablet 500 mg PO BID valsartan 320 mg tablet 320 mg PO QDAY atorvastatin 80 mg tablet 80 mg PO DAILY Qty: 90 1RF niacinamide 500 mg tablet 500 mg PO DAILY Qty: 90 1RF pantoprazole 40 mg tablet,delayed release (DR/EC) 40 mg PO BID Qty: 180 1RF Discontinued lidocaine 5 % adhesive patch,medicated 1 patch topical DAILY Qty: 30 0RF Rx Instructions: leave on most painful area for up to 12 hrs amlodipine 5 mg tablet 5 mg PO QDAY hydrochlorothiazide 25 mg tablet 25 mg PO QAM felodipine 5 mg tablet extended release 24 hr 5 mg PO QDAY No Action (DME) blood-glucose meter [Blood Glucose Monitoring] Kit See Rx Instructions .ROUTE Qty: 1 0RF Rx Instructions: As directed (DME) Blood Glucose Test Strip See Rx Instructions .ROUTE Qty: 50 4RF Rx Instructions: As directed (DME) lancets [Easy Touch Lancets] 28 gauge misc See Rx Instructions .ROUTE Qty: 100 3RF Rx Instructions: As directed Did you review [place] [employer] for ALL controlled substances?: Not Applicable Discussed opioids are addictive and Narcan is available by prescription or from pharmacy.: No Condition: Stable Referrals: SUZAN MANZANO MD [Primary Care Provider] - 08/24/23 3:20 pm
== END 2023-08-18 13:00 | disposition home or self-care (01) ==
LOC: MEDSURG B 11:27 → ED 11:27 → MEDSURG B 15:20
PROVIDERS: ADMIT Hospitalist; ATTEND Physician Assistant
DX: E86.0 Dehydration; E87.5 Hyperkalemia; K44.9 Diaphragmatic hernia without obstruction or gangrene; K52.9 Noninfective gastroenteritis and colitis, unspecified; I95.1 Orthostatic hypotension; Z79.84 Long term (current) use of oral hypoglycemic drugs; Z79.4 Long term (current) use of insulin; N17.9 Acute kidney failure, unspecified; Z20.822 Contact with and (suspected) exposure to COVID-19; R55 Syncope and collapse; K57.30 Diverticulosis of large intestine without perforation or abscess without bleeding; I10 Essential (primary) hypertension; K21.9 Gastro-esophageal reflux disease without esophagitis; E78.5 Hyperlipidemia, unspecified; Z51.81 Encounter for therapeutic drug level monitoring; Z79.899 Other long term (current) drug therapy; E11.9 Type 2 diabetes mellitus without complications